=== PATIENT | male | born 1975 | race Caucasian/White ===

== ENCOUNTER 2019-11-21 09:54 | Emergency (ER) | payer MEDICAID ==
[~2019-11-21] VITALS: Ht 170.2 cm; Wt 81.6 kg
[2019-11-21 09:54] VITALS: BP_SYST 127
--- NOTE | 2019-11-21 09:54 | NUR ---
Patient to ER bed 8 to gown for evaluation. Side rails up. Report given to LUIS Vazquez.
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
--- NOTE | 2019-11-21 10:21 | NUR ---
Dr Bar at bedside examining patient
[2019-11-21] MEDS ORDERED: KETOROLAC TROMETHAMINE 15 MG VIAL IVP ONE (10:30)
[2019-11-21] MEDS ORDERED: ONDANSETRON HCL 4 MG/2 ML VIAL IVP ONE ×2 (10:30→11:45)
[2019-11-21] MEDS ORDERED: NACL 0.9% 1,000 ML IV ONE (10:30)
--- NOTE | 2019-11-21 10:30 | NUR ---
Pt states he is not able to urinate at this time.
--- NOTE | 2019-11-21 11:14 | NUR ---
Pt off the unit for CT
[2019-11-21] MEDS ORDERED: IOHEXOL 100 ML IV ONE (11:19)
[2019-11-21] MEDS ORDERED: MORPHINE 4 MG/ML INJ. SYRINGE IVP ONE (11:45)
--- NOTE | 2019-11-21 12:30 | NUR ---
Pt A&Ox4, VSS, respirations even and unlabored
[2019-11-21 13:00] LABS: BASOPHILS # (AUTO) 0.1 K/uL (0.0-0.2); BASOPHILS % (AUTO) 0.9 % (0.0-2.0); EOSINOPHILS # (AUTO) 0.3 K/uL (0.0-0.4); EOSINOPHILS % (AUTO) 4.5 % (0.0-4.0); HEMATOCRIT 45.3 % (36-54); HEMOGLOBIN 15.2 g/dL (14.0-18.0); LYMPHOCYTES # (AUTO) 1.2 K/uL (1.0-5.5); LYMPHOCYTES % (AUTO) 17.8 % (20.5-51.5); MEAN CORPUSCULAR HEMOGLOBIN 34 pg (27-31); MEAN CORPUSCULAR HGB CONC 34 % (32-36); MEAN CORPUSCULAR VOLUME 101 fL (79.0-98.0); MONOCYTES # (AUTO) 0.5 K/uL (0.0-1.0); NEUTROPHILS # (AUTO) 4.5 K/uL (1.8-7.7); NEUTROPHILS % (AUTO) 68.8 % (40.0-70.0); PLATELET COUNT (AUTO) 235 K/uL (130-430); RED BLOOD CELL COUNT(AUTO) 4.49 MIL/uL (4.2-6.2); RED CELL DISTRIBUTION WIDTH 14.2 % (9.0-15.0); WHITE BLOOD COUNT (AUTO) 6.6 K/uL (4.8-10.8)
[2019-11-21 13:02] LABS: CALCIUM 9.2 mg/dL (8.4-11.0); CREATININE 1.03 mg/dL (0.55-1.30); POTASSIUM 4.4 mmol/L (3.5-5.1)
[2019-11-21 13:08] LABS: ALBUMIN 3.8 g/dL (3.4-4.8); TOTAL BILIRUBIN 0.6 mg/dL (0.0-1.0)
[2019-11-21 13:40] VITALS: BP_SYST 120
--- NOTE | 2019-11-21 13:40 | NUR ---
Patient given written and verbal discharge instructions and verbalizes understanding. ER MD Dr. Bar discussed with patient the results and treatment provided. Patient in stable condition. ID arm band removed. IV catheter removed intact and dressing applied, no active bleeding. Rx of Umbarger given. Patient educated on pain management and to follow up with PMD. Pain Scale 0/10. Opportunity for questions provided and answered. Medication side effect fact sheet provided.
== END 2019-11-21 13:40 | disposition home or self-care (01) ==
LOC: SED 09:54
DX: S22.32XA Fracture of one rib, left side, initial encounter for closed fracture (principal); R10.9 Unspecified abdominal pain; Z48.02 Encounter for removal of sutures; Z91.410 Personal history of adult physical and sexual abuse; X99.1XXA Assault by knife, initial encounter; Y93.89 Activity, other specified; Y92.89 Other specified places as the place of occurrence of the external cause; Y99.8 Other external cause status
CPT/HCPCS: 36415; 74177; 80053; 83690; 85025; 96374; 96375; 96376; 99284; J1885; J2270; J2405; J7030; Q9967

== ENCOUNTER 2022-09-05 19:29 | Emergency (ER) | payer MEDICAID ==
[~2022-09-05] VITALS: Ht 185.4 cm; Wt 83.9 kg
[2022-09-05 21:00] VITALS: BP_SYST 120
--- NOTE | 2022-09-05 21:03 | NUR ---
tPatient triaged and placed in waiting room. VS checked and patient appears in no acute distress at this time. Accompanied by self, awaiting available bed, and MD notified of need for MSE.
--- NOTE | 2022-09-05 21:10 | NUR ---
Patient arrived to ED for c/o oral mouth pain. Patient saw Dr. Bridges. Patient said that his mouth had white and red spots and was painful. Hx of alcohol withdrawals. Patient denies any other PMH. Will continue to monitor.
[2022-09-05] MEDS ORDERED: KETOROLAC TROMETHAMINE 30 MG VIAL IVP ONE (22:30)
[2022-09-05] MEDS ORDERED: CLINDAMYCIN 900 mg/50mL D5W 50 ML IV ONE (22:30)
[2022-09-05] MEDS ORDERED: FLUCONAZOLE 200 mg/ NS 100 ML IV ONE (22:30)
[2022-09-05] MEDS ORDERED: NACL 0.9% 1,000 ML IV ONE (22:30)
[2022-09-05 23:06] LABS: BASOPHILS # (AUTO) 0.1 K/uL (0.0-0.2); BASOPHILS % (AUTO) 1.2 % (0.0-2.0); CALCIUM 9.6 mg/dL (8.4-11.0); EOSINOPHILS # (AUTO) 0.1 K/uL (0.0-0.4); EOSINOPHILS % (AUTO) 1.2 % (0.0-4.0); HEMATOCRIT 39.3 % (36-54); HEMOGLOBIN 13.7 g/dL (14.0-18.0); LYMPHOCYTES # (AUTO) 1.3 K/uL (1.0-5.5); MEAN CORPUSCULAR HEMOGLOBIN 37 pg (27-31); MEAN CORPUSCULAR HGB CONC 35 % (32-36); MEAN CORPUSCULAR VOLUME 105 fL (79.0-98.0); MONOCYTES # (AUTO) 0.9 K/uL (0.0-1.0); MONOCYTES % (AUTO) 11.8 % (1.7-9.3); NEUTROPHILS % (AUTO) 68.8 % (40.0-70.0); PLATELET COUNT (AUTO) 218 K/uL (130-430); RED BLOOD CELL COUNT(AUTO) 3.74 MIL/uL (4.2-6.2); RED CELL DISTRIBUTION WIDTH 16.1 % (9.0-15.0); WHITE BLOOD COUNT (AUTO) 7.3 K/uL (4.8-10.8)
[2022-09-05 23:07] LABS: CREATININE 0.86 mg/dL (0.55-1.30)
[2022-09-05] MEDS ORDERED: HYDROcodone/ACETAMIN 5-325 MG TAB (NORCO/ VICODIN) PO ONE (23:30)
[2022-09-05] MEDS ORDERED: DIF100 PO (23:46)
[2022-09-05] MEDS ORDERED: IBUP100O22 PO (23:46)
[2022-09-05] MEDS ORDERED: CLIN75SO8 PO (23:46)
[2022-09-05] MEDS ORDERED: ACET12.55 PO (23:46)
[2022-09-06 00:07] VITALS: BP_SYST 134
--- NOTE | 2022-09-06 00:09 | NUR ---
Patient given written and verbal discharge instructions and verbalizes understanding. ER MD discussed with patient the results and treatment provided. Patient in stable condition. ID arm band removed. IV catheter removed intact and dressing applied, no active bleeding. Rx of antibiotics and pain meds given. Patient educated on pain management and to follow up with PMD. Pain Scale . Opportunity for questions provided and answered. Medication side effect fact sheet provided.
== END 2022-09-06 00:03 | disposition home or self-care (01) ==
LOC: SED 19:29
DX: B37.0 Candidal stomatitis (principal); K12.2 Cellulitis and abscess of mouth; R22.0 Localized swelling, mass and lump, head; F17.200 Nicotine dependence, unspecified, uncomplicated; Z79.899 Other long term (current) drug therapy
CPT/HCPCS: 99284; 96365; 96367; 96375; 80048; 85025; 36415; J3490; J1450; J1885